=== PATIENT | male | born 1975 | race Caucasian/White ===

== ENCOUNTER 2016-11-02 21:06 | Emergency (ER) | payer OTHER ==
[~2016-11-02] VITALS: Ht 185.4 cm; Wt 136.1 kg
[~2016-11-02 21:06] MED LIST: ACETAMINOPHEN-1 EAC1 PO; AMOXICILLIN500 MG PO; BACTRIM DS TAB1 EACH PO; CEPHALEXIN500 MG PO; DELTASONE20 MG PO; KEFLEX500 MG PO; NEURONTIN100 MG PO; NORCO 5-325 TA1 EACH PO; NORCO 7.5-3251 EACH PO; OMEPRAZOLE20 MG PO; PREDNISONE20 MG PO
[2016-11-02] MEDS ORDERED: OMEPRAZOLE20 MG PO (21:14)
[2016-11-02] MEDS ORDERED: TRAMADOL HCL50 MG PO (22:50)
== END 2016-11-02 23:06 | disposition home or self-care (01) ==
LOC: ED 21:06
PROC: 0HDQXZZ Extraction of Finger Nail, External Approach (ICD-10-PCS; principal; 2016-11-02)
DX: L60.0 Ingrowing nail (principal); I10 Essential (primary) hypertension; E78.5 Hyperlipidemia, unspecified; K21.9 Gastro-esophageal reflux disease without esophagitis; F17.200 Nicotine dependence, unspecified, uncomplicated; Z79.899 Other long term (current) drug therapy
CPT/HCPCS: 11730; 99283

== ENCOUNTER 2017-03-25 20:14 | Emergency (ER) | payer OTHER ==
[~2017-03-25] VITALS: Ht 185.4 cm; Wt 147.4 kg
[~2017-03-25 20:14] MED LIST changes: +TRAMADOL HCL50 MG PO
[2017-03-25] MEDS ORDERED: OMEPRAZOLE20 MG PO (20:23)
[2017-03-25] MEDS ORDERED: IBUPROFEN800 MG PO (20:23)
== END 2017-03-25 22:09 | disposition home or self-care (01) ==
LOC: ED 20:14
DX: R22.43 Localized swelling, mass and lump, lower limb, bilateral (principal); K21.9 Gastro-esophageal reflux disease without esophagitis; E78.5 Hyperlipidemia, unspecified; I10 Essential (primary) hypertension; Z87.891 Personal history of nicotine dependence; Z98.890 Other specified postprocedural states
CPT/HCPCS: 93970; 99284

== ENCOUNTER 2017-06-22 06:53 | Day surgery (SDC) | payer OTHER ==
[~2017-06-22] VITALS: Ht 185.4 cm; Wt 163.3 kg
[~2017-06-22 06:53] MED LIST changes: +IBUPROFEN800 MG PO
[2017-06-22] MEDS ORDERED: NORCO 10-325 T1 EACH PO (11:46)
--- NOTE | 2017-06-29 08:29 | OR ---
[facility] [address], [place] [address] Signed DATE OF OPERATION: 06/22/2017 SURGEON: Lawrence Chambers MD PREOPERATIVE DIAGNOSIS: Incarcerated umbilical hernia (12 mm). POSTOPERATIVE DIAGNOSIS: Incarcerated umbilical hernia (12 mm). PROCEDURE: Umbilical herniorrhaphy with intraabdominal Ventralex mesh (8 cm). ESTIMATED BLOOD LOSS: None. 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 He noticed he had pain and swelling at the umbilicus. It has become larger and more painful. He said initially he could push it back inside. Now, he said it is so hard and tender, he can barely touch it. He ended up with an ultrasound and it showed the 9 mm fascial defect with 3 to 4 cm herniated tissue through that area. Also, there was concern about bowel coming through the fascial defect. He was asked to see me with respect to the above. In the office, it is easy to see his moderate-sized umbilical hernia. The overlying skin was little thin, but no breakdown and no infection. We tried to reduce it and it was just simply too tender. I had given Zac in the office a booklet on hernias and we looked at that together along with the difference between a primary suture repair and a mesh repair. He understands expected intraop and postop course. We did review the risks including, but not limited to, bleeding, infection, scarring, change in contour of the skin, damage to bowel, infection of the mesh requiring removal, recurrent hernias, and chronic pain. He expressed understanding and wished to proceed. PROCEDURE NOTE: Zac was taken into the operating room and placed in a supine position under general endotracheal tube anesthesia. He was given preoperative antibiotics along with subcutaneous heparin. SCDs were utilized. He was then prepped and draped in the usual sterile fashion. We utilized our standard transverse infraumbilical incision, we carried it down and around the umbilicus bluntly and with the cautery. We the fascial defect from the hernia sac with the help of the cautery. He had a large ball of Electronically Signed By: LAWRENCE CHAMBERS MD 06/29/17 0829 PATIENT NAME: ZAC DIETRICH SR OPERATIVE REPORT DATE OF : 73 REPORT #: [id number] PHYSICIAN: LAWRENCE CHAMBERS MD PCP: GALDINO WASSERMAN PA-C REPORT IS CONFIDENTIAL AND NOT TO BE RELEASED WITHOUT AUTHORIZATION [facility] [address] [place], [place] [address] Signed fat, couple centimeters at least in diameter was incarcerated and very indurated. I am sure this was what we could not reduce. We amputated that and passed that off the field. After this, we chose our 8 cm round Ventralex mesh, we placed that inside the abdominal cavity and brought it up flush against the posterior abdominal wall. The fascial defect was then closed transversely with a running #1 Prolene suture. Several passes of the suture went through the tab on the mesh to help hold it in place. After this, the tab was cut flush with the fascial defect and discarded. We then infiltrated the entire wound with local anesthetic. The wound was then irrigated with warm antibiotic saline solution until completely clear. The umbilical skin was held down to the midline fascia with an interrupted 2-0 PDS suture. The skin and dermis were reapproximated with interrupted 3-0 subcuticular Monocryl sutures. Dry gauze and tape were then applied. Zac was then awakened from his anesthesia, extubated in the OR, and taken into recovery room in stable condition. Lawrence Chambers MD ALB/MODL /[id number] cc: ALBERT Crowder MD Copies: GALDINO WASSERMAN PA-C, ANDREW L MD ~ Electronically Signed By: LAWRENCE CHAMBERS MD 06/29/17 0829 PATIENT NAME: ZAC DIETRICH SR OPERATIVE REPORT DATE OF : 73 REPORT #: [id number] PHYSICIAN: LAWRENCE CHAMBERS MD PCP: GALDINO WASSERMAN PA-C REPORT IS CONFIDENTIAL AND NOT TO BE RELEASED WITHOUT AUTHORIZATION
== END 2017-06-22 12:21 | disposition home or self-care (01) ==
LOC: DS 06:53
PROVIDERS: Colon & Rectal Surgery
PROC: 0WUF0JZ Supplement Abdominal Wall with Synthetic Substitute, Open Approach (ICD-10-PCS; principal; 2017-06-22 08:15)
DX: K42.0 Umbilical hernia with obstruction, without gangrene (principal); F17.220 Nicotine dependence, chewing tobacco, uncomplicated; Z98.890 Other specified postprocedural states; Z79.899 Other long term (current) drug therapy
CPT/HCPCS: 00750; 94640; C1781; J0330; J0690; J1100; J1644; J1885; J2250; J2405; J2704; J2710; J2765; J3010; J7120

== ENCOUNTER 2017-12-19 08:31 | Emergency (ER) | payer OTHER ==
[~2017-12-19] VITALS: Ht 185.4 cm; Wt 163.3 kg
--- OUTSIDE RECORDS SUMMARY | ~2017-12-19 | XMS | Clinical Summary ---
Demographics + + + | Address | [address] | | | [place] [address] | + + + | Home Phone | | + + + | Preferred Language | Unknown | + + + | Marital Status | Unknown | + + + | Shinto Affiliation | Unknown | + + + | Race | Unknown | + + + | Ethnic Group | Unknown | + + + Author + + + | Author | [facility] | | | and [place] | + + + | Organization | [facility] | | | and [place] | + + + | Address | Unknown | + + + | Phone | Unavailable | + + + Care Team Providers + +------+ + | Care Video Conference Specialist Name | Role | Phone | + +------+ + PP | Unavailable | + +------+ + Allergies Not on File Current Medications Not on file Active Problems Not on file Social History + +-------+ +--------+------+ | Tobacco Use | Types | Packs/Day | Years | Date | | | | | Used | | + +-------+ +--------+------+ | Never Assessed | | | | | + +-------+ +--------+------+ + + + | Sex Assigned at | Date Recorded | | | | + + + | Not on file | | + + + Plan of Treatment + + + + + | Health Maintenance | Due Date | Last Done | Comments | + + + + + | Vaccine: | | | | | Dtap/Tdap/Td (1 - | 3 | | | | Tdap) | | | | + + + + + | Vaccine: Influenza | | | | | (#1) | 8 | | | + + + + + Results Not on filefrom Last 3 Months"
--- OUTSIDE RECORDS SUMMARY | ~2017-12-19 | XMS | Clinical Summary ---
Demographics + + + | Address | [address] | | | [place] [address] | + + + | Home Phone | | + + + | Preferred Language | Unknown | + + + | Marital Status | Unknown | + + + | Hindu Affiliation | Unknown | + + + | Race | Unknown | + + + | Ethnic Group | Unknown | + + + Author + + + | Author | [facility] | | | and [place] | + + + | Organization | [facility] | | | and [place] | + + + | Address | Unknown | + + + | Phone | Unavailable | + + + Care Team Providers + +------+ + | Care Pearl Fisherman Name | Role | Phone | + [...]
[~2017-12-19 08:31] MED LIST changes: +NORCO 10-325 T1 EACH PO
[2017-12-19] MEDS ORDERED: METFORMIN HCL1000 MG PO (08:42)
[2017-12-19] MEDS ORDERED: VIVLODEX10 MG PO (08:43)
== END 2017-12-19 08:49 | disposition home or self-care (01) ==
LOC: ED 08:31
DX: M25.561 Pain in right knee (principal)

== ENCOUNTER 2020-10-21 21:02 | Emergency (ER) | payer OTHER ==
[~2020-10-21] VITALS: Ht 185.4 cm; Wt 158.8 kg
[~2020-10-21 21:02] MED LIST changes: +ELIQUIS5 MG PO; +FAMCICLOVIR500 MG PO; +METFORMIN HCL1000 MG PO; +METOPROLOL TART50 MG PO; +VIVLODEX10 MG PO
[2020-10-21] MEDS ORDERED: VALIUM5 MG PO (23:38)
[2020-10-21] MEDS ORDERED: LIDODERM1 EACH TOP (23:38)
[2020-10-21] MEDS ORDERED: IBU600 MG PO (23:38)
[2020-10-21] MEDS ORDERED: MAPAP500 MG PO (23:38)
== END 2020-10-22 | disposition home or self-care (01) ==
LOC: ED 21:02
DX: M62.830 Muscle spasm of back (principal); I10 Essential (primary) hypertension; E78.5 Hyperlipidemia, unspecified; K21.9 Gastro-esophageal reflux disease without esophagitis
CPT/HCPCS: 99283; A9270

== ENCOUNTER 2021-01-01 15:00 | Emergency (ER) | payer OTHER ==
[~2021-01-01] VITALS: Ht 185.4 cm; Wt 170.1 kg
[~2021-01-01 15:00] MED LIST changes: +IBU600 MG PO; +LIDODERM1 EACH TOP; +MAPAP500 MG PO; +VALIUM5 MG PO
== END 2021-01-01 18:57 | disposition home or self-care (01) ==
LOC: ED 15:00
DX: R10.12 Left upper quadrant pain (principal); I10 Essential (primary) hypertension; E78.5 Hyperlipidemia, unspecified; K21.9 Gastro-esophageal reflux disease without esophagitis; Z79.899 Other long term (current) drug therapy
CPT/HCPCS: 74177; 80048; 80053; 81001; 82150; 83690; 85025; 96375; 99284-25; J1885; J2405; J2765; J7030; Q9967

== ENCOUNTER 2021-10-13 18:06 | Emergency (ER) | payer OTHER ==
[~2021-10-13] VITALS: Ht 185.4 cm; Wt 170.1 kg
--- NOTE | ~2021-10-13 | EKG ---
[facility] [address] [facility] [place], [place] [address] Draft EK completed, results pending confirmation PATIENT NAME: ZAC DIETRICH SR Electrocardiogram DATE OF : 73 PHYSICIAN: PRELIMINARY REPORT #: [id number] REPORT IS CONFIDENTIAL AND NOT TO BE RELEASED WITHOUT AUTHORIZATION
== END 2021-10-13 19:59 | disposition home or self-care (01) ==
LOC: ED 18:06
DX: E86.0 Dehydration (principal); R53.1 Weakness; I10 Essential (primary) hypertension; E78.5 Hyperlipidemia, unspecified; K21.9 Gastro-esophageal reflux disease without esophagitis; G47.30 Sleep apnea, unspecified; Z79.899 Other long term (current) drug therapy
CPT/HCPCS: 36415; 80053; 81001; 85025; 93005; 93010; 96360; 99285-25; J7030

== ENCOUNTER 2021-11-03 17:01 | Emergency (ER) | payer OTHER ==
[~2021-11-03] VITALS: Ht 185.4 cm; Wt 158.8 kg
--- OUTSIDE RECORDS SUMMARY | 2021-11-03 17:08 | XMS ---
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 Stefano VISIT COUNT ([address] [facility] TOTAL 3 NOTE: Visits indicate total known visits. ED/UCC VISIT TRACKING (12 MO.) 11/03/2021 17:02 [facility] OR TYPE: Emergency COMPLAINT: - FACIAL SWELLING 10/13/2021 18:08 [facility] OR TYPE: Emergency COMPLAINT: - NAUSEA, DIFFICULTY BREATHING DIAGNOSES: - Weakness - Dehydration - Hyperlipidemia, unspecified - Essential (primary) hypertension - Sleep apnea, unspecified - Other alf (current) drug therapy - Gastro-esophageal reflux disease without esophagitis 01/01/2021 15:00 [facility] OR TYPE: Emergency COMPLAINT: - VOMITING, ABD PAIN DIAGNOSES: - Left upper quadrant pain - Gastro-esophageal reflux disease without esophagitis - Essential (primary) hypertension - Hyperlipidemia, unspecified - 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
[2021-11-03] MEDS ORDERED: AMOX TR-K CLV1 EAC1 PO (18:30)
== END 2021-11-03 18:39 | disposition home or self-care (01) ==
LOC: ED 17:01
DX: R22.1 Localized swelling, mass and lump, neck (principal); I10 Essential (primary) hypertension; E78.5 Hyperlipidemia, unspecified; K21.9 Gastro-esophageal reflux disease without esophagitis; G47.30 Sleep apnea, unspecified
CPT/HCPCS: 99283

== ENCOUNTER 2024-06-13 19:23 | Emergency (ER) | payer OTHER ==
[~2024-06-13] VITALS: Ht 185.4 cm; Wt 103.0 kg
[~2024-06-13 19:23] MED LIST changes: +AMOX TR-K CLV1 EAC1 PO
[2024-06-13] MEDS ORDERED: ONDANSETRON 4 MG TAB ODT SL ONE (20:00)
[2024-06-13 20:30] LABS: CORONAVIRUS COVID-19 AG NEGATIVE (NEGATIVE); INFLUENZA A AG NEGATIVE (NEGATIVE); INFLUENZA B AG NEGATIVE (NEGATIVE)
[2024-06-13] MEDS ORDERED: CEFTRIAXONE SODIUM 2 GM VIAL ONE (20:31)
[2024-06-13] MEDS ORDERED: ACETAMINOPHEN 500 MG TAB PO ONE (20:45)
[2024-06-13] MEDS ORDERED: ondansetron HCL 4 MG/2 ML VIAL IV ONE (20:45)
[2024-06-13] MEDS ORDERED: SODIUM CHLORIDE 0.9% 1,000 ML IV PRN (20:45)
[2024-06-13] MEDS ORDERED: CEFTRIAXONE SODIUM 2 GM in SODIUM CHLORIDE 0.9% 100 ML IV ONE (20:45)
[2024-06-13] MEDS ORDERED: IBUPROFEN 800 MG TAB PO ONE (20:45)
[2024-06-13 20:49] LABS: BASOPHILS 0.2 % (0-2); HEMOGLOBIN 13.7 g/dL (12.0-18.0); LYMPHOCYTES 7.8 % (24-44); MCH 29.1 (27-36); MCHC 34.3 g/dl (30-36); MCV 84.9 fl (81-99); MONOCYTES 9.8 % (0-12); NEUTROPHILS 82.2 % (39-80); PLATELET COUNT 134 K/uL (140-440); RBC 4.71 M/ul (4.3-5.7); RDW 13.9 (10.5-15.0)
[2024-06-13 21:00] LABS: INR 1.15 (0.80-1.30); PROTIME 14.6 Sec (11.2-14.2)
[2024-06-13 21:02] LABS: PARTIAL THROMBOPLASTIN TIME 36.1 Sec (22.9-41.3)
[2024-06-13 21:05] LABS: ALBUMIN/GLOBULIN RATIO 0.73 (1.1-2.4); ANION GAP 11.8 (7-21); BILIRUBIN, TOTAL 0.5 mg/dL (0.2-1.0); BUN/CREATININE RATIO 13.33 (6.0-28.6); CALCIUM 8.4 mg/dL (8.5-10.1); CREATININE, SERUM 1.05 mg/dL (0.70-1.30); POTASSIUM 3.8 mmol/L (3.5-5.1); PROTEIN, TOTAL 7.1 g/dL (6.4-8.2)
[2024-06-13 21:09] LABS: LACTIC ACID, BLOOD 1.3 mmol/L (0.4-2.0)
[2024-06-13] MEDS ORDERED: AZITHROMYCIN 500 MG in DEXTROSE 5% 250 ML IV ONE (21:30)
[2024-06-13] MEDS ORDERED: CEFDINIR300 MG PO (22:22)
[2024-06-13] MEDS ORDERED: IBU600 MG PO (22:26)
[2024-06-13] MEDS ORDERED: CEFDINIR 300 MG HOME.PACK PO ONE (22:30)
[2024-06-13] MEDS ORDERED: ALBUTEROL SULFATE 8 GM HOME.PACK INH ONE (22:30)
[2024-06-13] MEDS ORDERED: methylPREDNISolone 4 MG HOME.PACK PO ONE (22:30)
[2024-06-13] MEDS ORDERED: AZITHROMYCIN 250 MG HOME.PACK PO ONE (22:30)
[2024-06-13] MEDS ORDERED: INHALER, ASSIST DEVICES 1 EACH SPACER MISC ONE (22:30)
[2024-06-13 23:05] VITALS: BP 104/64
--- NOTE | 2024-06-15 18:38 | EKG ---
[facility] [address] [facility] [place] [address] Signed Atrial flutter with 3:1 AV conduction Rightward axis Nonspecific ST and T wave abnormality Prolonged QT Abnormal ECG When compared with ECG of 13-OCT-2021 18:18, Atrial flutter has replaced Sinus rhythm ST elevation now present in Inferior leads ST elevation now present in Anterior leads Nonspecific T wave abnormality now evident in Anterolateral leads Confirmed by Vielka Lucero MD () on 06/15/2024 6:38:25 PM Electronically Signed By: VIELKA LUCERO MD 06/15/24 1838 PATIENT NAME: ZAC DIETRICH SR Electrocardiogram DATE OF : 73 PHYSICIAN: VIELKA LUCERO MD REPORT #: [id number] REPORT IS CONFIDENTIAL AND NOT TO BE RELEASED WITHOUT AUTHORIZATION
== END 2024-06-13 23:05 | disposition home or self-care (01) ==
LOC: ED 19:23
PROVIDERS: Family Medicine
DX: J18.9 Pneumonia, unspecified organism (principal); I10 Essential (primary) hypertension; E78.5 Hyperlipidemia, unspecified; K21.9 Gastro-esophageal reflux disease without esophagitis; R73.03 Prediabetes; G47.30 Sleep apnea, unspecified
CPT/HCPCS: 36415; 71045; 80053; 83605; 85025; 85610; 85730; 87040; 93005; 93010; 94640; 94664; 96365; 96367; 99284-25; A9270; J0456; J7030; J7060